=== PATIENT | male | born 1960 | race Caucasian/White ===

== ENCOUNTER → 2021-01-13 07:37 | Outpatient (CLI) | payer BC, SELFPAY ==
--- NOTE | ~2021-01-13 | MR_ITS ---
EXAMINATION: MR lumbar spine wo con DATE: 01/13/2021 08:16 INDICATION: Lumbar back pain and bulging discs. TECHNIQUE: Magnetic resonance imaging (MRI) of the lumbar spine was performed without intravenous con trast. Sequences included sagittal T2-weighted FSE, sagittal T2-weighted FS FSE, sagittal T1-weighted FSE, and axial T2-weighted FSE. COMPARISON: None FINDINGS: 2 mm retrolisthesis L2 on L3 and L5 on S1. Vertebral body heights are normal. Normal marrow signal. Disc desiccation and mild disc height loss at T10-T11, T11-T12, L2-L3 through L5-S1. Annular fissure and small disc extrusion at L5-S1. The conus medullaris terminates at T12-L1. There is normal signal in the caudal spinal cord. Paravertebral soft tissues are unremarkable. The following disc levels are specifically discussed: T12-L1: The disc does not extend beyond the endplate margin. There is mild bilateral facet joint oste oarthritis. There is no neural foraminal stenosis. There is no central canal stenosis. L1-L2: Disc is minimally bulging. There is mild bilateral facet joint osteoarthritis. There is mild r ight and minimal left neural foraminal stenosis. There is no central canal stenosis. L2-L3: Disc is mildly bulging. There is mild bilateral facet joint osteoarthritis. There is mild bila teral neural foraminal stenosis. There is mild central canal stenosis. L3-L4: Disc is mildly bulging. There is mild bilateral facet joint osteoarthritis. There is mild bila teral neural foraminal stenosis. There is mild central canal stenosis. L4-L5: Disc is mildly bulging. There is severe bilateral facet joint osteoarthritis. There is small a mount of fluid situated between the articular surface of the bilateral facet joints suggesting potent ial for transitory motion with up to 2 mm anterolisthesis. There is moderate bilateral neural foramin al stenosis. There is mild central canal stenosis as well as mild narrowing of the left and right lat eral recesses. L5-S1: Annular fissure and small broad-based disc extrusion extending from foraminal zone to foramina l zone but centered at the level of the right lateral recess where the disc material extends a couple mm cephalad and caudal to the level of the endplates. There is moderate bilateral facet joint osteoa rthritis. There is mild bilateral neural foraminal stenosis. There is no central canal stenosis. Ther e is asymmetric right-sided predominant narrowing of the lateral recesses. IMPRESSION: 1. Mild to moderate lower lumbar predominant spondylosis. Reviewed, dictated and finalized at location A.
== END ==
PROVIDERS: PCP Family Medicine; Visit Provider Family Medicine
DX: M54.5 Low back pain (principal); M51.26 Other intervertebral disc displacement, lumbar region; M47.816 Spondylosis without myelopathy or radiculopathy, lumbar region
CPT/HCPCS: 72148